=== PATIENT | female | born 1950 | race Caucasian/White ===

== ENCOUNTER 2021-10-12 17:02 | Emergency (ER) | payer MEDICARE, OTHER ==
[2021-10-12] MEDS ORDERED: Acetaminophen/HYDROcodone 325-5 MG Tab PO ONE (17:25)
[2021-10-12] MEDS ORDERED: Sodium Chloride 0.9% 10 ML Syringe FLUSH PRN (17:59)
[2021-10-12] MEDS ORDERED: HYDROmorphone 0.5 MG/0.5 ML Syringe IVPUSH ONE ×2 (17:59→19:06)
[2021-10-12] MEDS ORDERED: Sodium Chloride 0.9% 1,000 ML IV ONE (18:23)
[2021-10-12 18:33] LABS: PTT,PARTIAL THROMBOPLSTIN TIME 25.6 SEC (20.5-30.9)
[2021-10-12 18:37] LABS: CHLORIDE,CL 104 mmol/L (98-107); SODIUM,NA 141 mmol/L (136-145)
[2021-10-12 18:40] LABS: ANION GAP 13.2 mmol/L (5-15)
[2021-10-12] MEDS ORDERED: Sodium Chloride 0.9% 1,000 ML IV SCH (19:30)
== END 2021-10-12 19:38 | disposition short-term general hospital (02) ==
LOC: VM.ED 17:02
DX: S82.102A Unspecified fracture of upper end of left tibia, initial encounter for closed fracture (principal); S82.832A Other fracture of upper and lower end of left fibula, initial encounter for closed fracture; Z20.822 Contact with and (suspected) exposure to COVID-19; W10.9XXA Fall (on) (from) unspecified stairs and steps, initial encounter
CPT/HCPCS: 73562-LT; 80053; 83735; 84100; 85025; 85610; 85730; 96374; 96376; 99285; 99285-25; A9270-GY; J1170; J7030; U0002